=== PATIENT | female | born 1950 | race Caucasian/White ===

== ENCOUNTER 2016-10-15 08:06 | Day surgery (SDC) | payer OTHER ==
[~2016-10-15] VITALS: Ht 157.5 cm; Wt 68.0 kg
[~2016-10-15 08:06] MED LIST: DIPH1TAB36 PO; GUAN1TAB PO; LEVO88TA2 PO; TRAZ50TA4 PO; VENL150T14 PO; VIST25CA PO
[2016-10-15 08:20] VITALS: BP 141/71; PULSE 95; RESP 20; TEMP 98.1; O2SAT 97
[2016-10-15] MEDS ORDERED: VENL100T PO (09:12)
[2016-10-15] MEDS ORDERED: LEVO88TA2 PO (09:12)
[2016-10-15] MEDS ORDERED: LAMO150 PO (09:12)
[2016-10-15] MEDS ORDERED: TRAZ50TA12 PO (09:12)
[2016-10-15] MEDS ORDERED: LORA-373 PO (09:12)
[2016-10-15] MEDS ORDERED: CHLORHEXIDINE GLUCONATE 2 % 1 PACK (2 CLOTHS) TOPICAL SCH (09:30)
[2016-10-15] MEDS ORDERED: POVIDONE IODINE 5% (ANTISEPSIS KIT) 4 APPLICATIONS EACH NARE SCH (09:30)
[2016-10-15] MEDS ORDERED: SODIUM CHLORIDE 0.9% 1000 ML IV SCH (09:30)
[2016-10-15] MEDS ORDERED: ceFAZolin 2 GM PREMIX 50 ML - implanted port/tunneled catheter insertion IV SCH (09:30)
[2016-10-15] MEDS ORDERED: VANCOMYCIN 1000 MG/NS 250 ML - implanted port/tunneled catheter IV SCH ×2 (09:30)
[2016-10-15] MEDS ORDERED: METOCLOPRAMIDE HCL 10 MG/2 ML VIAL ONE (09:39)
[2016-10-15] MEDS ORDERED: MIDAZOLAM HCL 5 MG/5 ML VIAL ONE (09:57)
[2016-10-15] MEDS ORDERED: fentaNYL CITRATE 250 MCG/5 ML AMP ONE (09:58)
[2016-10-15] MEDS ORDERED: LIDOCAINE 1%/EPINEPHrine 1:100,000 SOLN 20 ML VIAL ONE (10:22)
--- NOTE | 2016-10-15 11:03 | PD.RAD ---
Post Procedure Progress Note Pre Procedure Diagnosis: (1) Ovarian cancer Post Procedure Diagnosis: (1) Ovarian cancer Procedure Date: Oct 15, 2016 Supervising Radiologist: Gama Hampton Proceduralist/Assist: Page Grajeda, RT(R), Denise Akers RT(R) Anesthesia: Local, Analgesia, Conscious Sedation Plan of Activity See PACS Report for procedural detail/treatment Central Venous Access Device Procedure 1 Right Internal Jugular Infusaport Placement single lumen Setswana: 8 Gama Hampton MD Oct 15, 2016 11:03
[2016-10-15 11:10] VITALS: BP 104/43; PULSE 93; RESP 16; TEMP 97.8; O2SAT 93
[2016-10-15] MEDS ORDERED: SODIUM CHLORIDE 0.9% FLUSH 5 ML FLUSH IVF PRN (11:15)
[2016-10-15 11:25] VITALS: BP 103/59; PULSE 91; RESP 16; O2SAT 92
[2016-10-15 12:00] VITALS: BP 95/61; PULSE 92; RESP 18; O2SAT 94
[2016-10-15 12:30] VITALS: BP 104/63; PULSE 92; RESP 18; O2SAT 94
[2016-10-15 13:00] VITALS: BP_SYST 108; BP_SYST 113; BP_DIAS 56; BP_DIAS 69; PULSE 88; PULSE 89; RESP 18; O2SAT 97
--- NOTE | 2016-10-15 15:54 | RADRPT ---
EXAM DATE/TIME: 10/15/2016 10:05 [facility] COMPARISON: No previous studies available for comparison. INDICATIONS : Patient with ovarian cancer in need of port placement. MEDICAL HISTORY : Ovarian cancer Anxiety Hemorrhoids Ascites SURGICAL HISTORY : Cholecystectomy Hysterectomy Colonoscopy 2016 Upper endoscopy ENCOUNTER: Initial ACUITY: 1 month PAIN SCORE: 5/10 LOCATION: upper abdomen due to ascites FLUORO TIME: 0.6 minutes SEDATION TIME: 30 minutes ACCESS: Right internal jugular vein SEDATION: 1.) 4 mg midazolam (Versed) IV 2.) 150 mcg fentanyl (Sublimaze) IV Prophylactic antibiotics were administered with appropriate pre-procedure timing. Vancomycin within 2 hours of procedure, Ancef (or alternative) within 1 hour of procedure. DEVICE: 1. 8 [place]arag[place] single lumen [id number] PROCEDURE : 1. Continuous pulse oximetry and EKG monitoring. 2. Intravenous conscious sedation. 3. Ultrasound guidance for venous access. 4. Fluoroscopic guided implantable central venous port placement. The patient was placed supine. The neck was prepped in sterile fashion. Full sterile technique was u sed, including cap, mask, sterile gloves and gown, and a large sterile sheet. Hand hygiene and 2% ch lorhexidine Betadine was utilized per protocol for cutaneous antisepsis with appropriate dry time for site. The skin and subcutaneous tissues were infiltrated with local anesthetic solution. Under direct ultrasound guidance, central venous access was accomplished in the targeted vessel. The ultrasound images depicting access guidance were stored and saved to PACS for permanent record. A s ubcutaneous pocket was created using blunt dissection. The port was introduced to the pocket. The c atheter tubing was fed through a subcutaneous tunnel to the venotomy site. The catheter tubing was c ut to a suitable length and then was introduced through a valved Peel-Away sheath and positioned with catheter tubing tip at the cavo-atrial junction level. The pocket incision was closed with subcutic ular Vicryl suture. Steri-Strips were applied. The port was flushed and locked with heparin solutio n per protocol. Sterile dressing was applied to the site. The patient tolerated the procedure well. Conscious sedation was performed with the prescribed dosages and duration as above. The patient coy ated the procedure well and there were no complications. EKG and oximetry remained stable throughout the procedure. The patient was sent to post anesthesia recovery in stable condition. CONCLUSION: Uncomplicated ultrasound and fluoroscopic guided implanted central venous port catheter placement as described in detail above. An 8 [place] Power port was placed. Gama Hampton MD on October 15, 2016 at 15:53 Board Certified Radiologist. This report was verified electronically.
== END 2016-10-15 13:30 | disposition home or self-care (01) ==
LOC: HROP 08:06 → HRIP 08:09 → HROP 13:30
PROVIDERS: ATTEND Obstetrics & Gynecology Gynecologic Oncology
DX: Z45.2 Encounter for adjustment and management of vascular access device (principal); C56.2 Malignant neoplasm of left ovary; C56.1 Malignant neoplasm of right ovary
CPT/HCPCS: 36561; 76937; 77001; 99152; 99153; C1788; J1642; J2250; J2765; J3010

== ENCOUNTER 2016-10-16 07:08 | Emergency (ER) | payer OTHER ==
[2016-10-16] VITALS (7 sets, daily range): BP systolic 15–153; BP diastolic 60–86; PULSE 80–98; RESP 18–25; TEMP 98.2–98.3; O2SAT 94–98
[~2016-10-16] VITALS: Ht 157.5 cm; Wt 71.0 kg
[~2016-10-16 07:08] MED LIST changes: +LAMO150 PO; +LORA-373 PO; +TRAZ50TA12 PO; +VENL100T PO
--- NOTE | 2016-10-16 07:27 | PD ---
HPI Chief Complaint: Abdominal Pain Time Seen by Provider: 07:27 Travel History International Travel<30 days: No Contact w/Intl Traveler<30days: No Traveled to known affect area: No History of Present Illness HPI 66-year-old female came to the emergency room with history of abdominal pain and distention. She was diagnosed with ovarian cancer 2 weeks ago while she was at [facility] for similar condition. She had fluid drained from her abdomen at that time. After she was discharged last week she followed up with Dr. Almanza and was told that she would probably end up requiring and a paracentesis on a weekly basis. She is also scheduled for chemotherapy. She had a port put in not too long ago for that purpose. Dr. Almanza was trying to arrange an outpatient paracentesis with radiology but patient didn't hear back and now she is really uncomfortable with the abdominal distention. She is here for the paracentesis. No history of fever or chills. No history of vomiting or diarrhea. [facility] Past Medical History Narrative Medical List of her past medical, social and family history as reviewed from the nursing note. Cancer: Yes Cardiovascular Problems: No Diabetes: No Endocrine: Yes Genitourinary: No Hepatitis: No Hiatal Hernia: Yes Immune Disorder: No Musculoskeletal: No Neurologic: No Psychiatric: Yes (DEPRESSION ANXIETY) Reproductive: Yes (OVARIAN CA) Respiratory: No Immunizations Current: Yes Thyroid Disease: Yes Past Surgical History Abdominal Surgery: Yes (CHOLECYSTECTOMY) AICD: No Cardiac Surgery: No Ear Surgery: No Eye Surgery: No Gynecologic Surgery: Yes (C SECTION AND HYSTERECTOMY) Joint Replacement: No Oral Surgery: Yes (TEETH EXTRACTION) Pacemaker: No Thoracic Surgery: No Social History Tobacco Use: No Substance Use: No Allergies-Medications (Allergen,Severity, Reaction): Coded Allergies: Dilaudid (Verified Allergy, Intermediate, hives all over, 10/16/16) Codeine (Verified Adverse Reaction, Severe, Hallucinations, 10/16/16) Morphine (Verified Adverse Reaction, Severe, Anaphylaxis, 10/16/16) Comments List of allergies reviewed from the nursing note. Reported Meds & Prescriptions Reported Meds & Active Scripts Active Reported Effexor (Venlafaxine HCl) 100 Mg Tab 100 Mg PO DAILY Levothyroxine (Levothyroxine Sodium) 88 Mcg Tab 88 Mcg PO DAILY Lorazepam 0.5 Mg Tab 0.5 Mg PO DAILY PRN Trazodone (Trazodone HCl) 50 Mg Tab 50 Mg PO HS Lamictal (Lamotrigine) 150 Mg Tab 150 Mg PO BID Narrative Medication List of her home medications reviewed from the nursing note. Review of Systems Except as stated in HPI: all other systems reviewed are Neg Physical Exam Narrative GENERAL: Awake, alert, anxious, moderate distress SKIN: Warm and dry. HEAD: Atraumatic. Normocephalic. EYES: Pupils equal and round. No scleral icterus. No injection or drainage. ENT: No nasal bleeding or discharge. Mucous membranes pink and moist. NECK: Trachea midline. No JVD. CARDIOVASCULAR: Regular rate and rhythm. No murmur appreciated. RESPIRATORY: No accessory muscle use. Clear to auscultation. Breath sounds equal bilaterally. GASTROINTESTINAL: Abdomen distended, tense with fluid thrill. Hepatic and splenic margins not palpable. MUSCULOSKELETAL: No obvious deformities. No clubbing. No cyanosis. No edema. NEUROLOGICAL: Awake and alert. No obvious cranial nerve deficits. Motor grossly within normal limits. Normal speech. PSYCHIATRIC: Appropriate mood and affect; insight and judgment normal. Data Data Last Documented VS Vital Signs Date Time Temp Pulse Resp B/P Pulse Ox O2 Delivery O2 Flow Rate FiO2 10/16/16 16:23 90 20 153/73 96 Room Air 10/16/16 08:27 98.3 Orders Complete Blood Count With Diff (10/16/16 07:29) Comprehensive Metabolic Panel (10/16/16 07:29) Prothrombin Time / Inr (Pt) (10/16/16 07:29) Iv Access Insert/Monitor (10/16/16 07:29) Ecg Monitoring (10/16/16 07:29) Oximetry (10/16/16 07:29) Ondansetron Inj (Zofran Inj) (10/16/16 07:30) Sodium Chloride 0.9% Flush (Ns Flush) (10/16/16 07:30) Us Guided Abd Paracentesis (10/16/16 ) Labs Laboratory Tests Test 10/16/16 08:00 White Blood Count 6.1 TH/MM3 Red Blood Count 4.44 MIL/MM3 Hemoglobin 11.4 GM/DL Hematocrit 34.1 % Mean Corpuscular Volume 76.8 FL Mean Corpuscular Hemoglobin 25.7 PG Mean Corpuscular Hemoglobin 33.5 % Concent Red Cell Distribution Width 14.5 % Platelet Count 651 TH/MM3 Mean Platelet Volume 6.5 FL Neutrophils (%) (Auto) 74.7 % Lymphocytes (%) (Auto) 16.1 % Monocytes (%) (Auto) 7.6 % Eosinophils (%) (Auto) 1.3 % Basophils (%) (Auto) 0.3 % Neutrophils # (Auto) 4.6 TH/MM3 Lymphocytes # (Auto) 1.0 TH/MM3 Monocytes # (Auto) 0.5 TH/MM3 Eosinophils # (Auto) 0.1 TH/MM3 Basophils # (Auto) 0.0 TH/MM3 CBC Comment DIFF FINAL Differential Comment Prothrombin Time 10.8 SEC Prothromb Time International 1.0 RATIO Ratio Sodium Level 138 MEQ/L Potassium Level 4.0 MEQ/L Chloride Level 105 MEQ/L Carbon Dioxide Level 26.3 MEQ/L Anion Gap 7 MEQ/L Blood Urea Nitrogen 12 MG/DL Creatinine 0.73 MG/DL Estimat Glomerular Filtration 80 ML/MIN Rate Random Glucose 84 MG/DL Calcium Level 8.3 MG/DL Total Bilirubin 0.2 MG/DL Aspartate Amino Transf 15 U/L (AST/SGOT) Alanine Aminotransferase 11 U/L (ALT/SGPT) Alkaline Phosphatase 98 U/L Total Protein 6.0 GM/DL Albumin 2.0 GM/DL MDM Medical Decision Making Medical Screen Exam Complete: Yes Emergency Medical Condition: Yes Medical Record Reviewed: Yes Differential Diagnosis Malignant ascites Narrative Course 11:30 AM blood test results came back and within normal limit. I discussed the case with interventional radiologist Dr. Josue Farrar will would to the ultrasound- guided paracentesis. Currently awaiting for the procedure. Patient will be discharged after that. I have recommended her to meet with her oncologist Tuesday and try to get this week the ultrasound scheduled better so that it can be done outpatient. Patient understands. She did not want anything for pain. 1:51 PM currently awaiting for the ultrasound-guided paracentesis. 3 PM patient was taken a short while ago for the procedure. 4 PM please refer to the radiologist's note. About 3.5 L of fluid was taken out of the abdomen. If patient has normal vital signs every 15 minutes 2 she' ll be discharged home. Procedures EKG Prior to Arrival: No Diagnosis Primary Impression: Malignant ascites Additional Impression: Ovarian cancer Qualified Code: C56.9 - Ovarian cancer, unspecified laterality Referrals: Primary Care Physician 2 days Additional Instructions: Please follow-up with your oncologist Dr. Almanza regarding outpatient set up for paracentesis and future. Please return to the ER if the condition worsens or any other new concerns. Med/Other Pt SpecificInfo: No Change to Meds Disposition: 01 DISCHARGE HOME Condition: Stable Bekah Finch MD Oct 16, 2016 07:27
[2016-10-16] MEDS ORDERED: ONDANSETRON HCL 4 MG/2 ML VIAL IVP ONE (07:30)
[2016-10-16] MEDS ORDERED: SODIUM CHLORIDE 0.9% FLUSH 5 ML FLUSH IVF PRN (07:30)
[2016-10-16 08:17] LABS: AUTOMATED NEUTROPHIL # 4.6 TH/MM3 (1.8-7.7); BASOPHIL % 0.3 % (0.0-2.0); EOSINOPHIL # 0.1 TH/MM3 (0-0.4); EOSINOPHIL % 1.3 % (0.0-4.0); HEMATOCRIT 34.1 % (35.0-46.0); HEMO FLAGS DIFF FINAL; LYMPH % 16.1 % (9.0-44.0); MEAN CELL VOLUME 76.8 FL (80.0-100.0); MEAN CORPUSCULAR HEMOGLOBIN 25.7 PG (27.0-34.0); MEAN CORPUSCULAR HGB CONC 33.5 % (32.0-36.0); MONO % 7.6 % (0.0-8.0); NEUT % 74.7 % (16.0-70.0); PLATELET COUNT 651 TH/MM3 (150-450); RED BLOOD COUNT 4.44 MIL/MM3 (4.00-5.30); RED CELL DISTRIBUTION WIDTH 14.5 % (11.6-17.2); WHITE BLOOD COUNT 6.1 TH/MM3 (4.0-11.0)
[2016-10-16 08:24] LABS: PROTHROMBIN TIME - PATIENT 10.8 SEC (9.8-11.6)
[2016-10-16 08:50] LABS: ALT (GPT) 11 U/L (10-53); ANION GAP 7 MEQ/L (5-15); AST (GOT) 15 U/L (15-37); BICARBONATE 26.3 MEQ/L (21.0-32.0); BLOOD UREA NITROGEN 12 MG/DL (7-18); CHLORIDE 105 MEQ/L (98-107); GLOMERULAR FILTRATION RATE 80 ML/MIN (>89); SODIUM (NA) 138 MEQ/L (136-145)
[2016-10-16 08:52] LABS: ALKALINE PHOSPHATASE 98 U/L (45-117); TOTAL BILIRUBIN ADULT 0.2 MG/DL (0.2-1.0)
--- NOTE | 2016-10-16 16:17 | RADRPT ---
EXAM DATE/TIME: 10/16/2016 14:51 [facility] COMPARISON: No previous studies available for comparison. INDICATIONS : Ascites. MEDICAL HISTORY : Hypothyroidism. . Ovarian cancer. Depression. Anxiety. Hiatal hernia. SURGICAL HISTORY : Cholecystectomy Hysterectomy. section. Bilateral carpal tunnel. Port placement. ENCOUNTER: Initial ACUITY: 1 week PAIN SCORE: 7/10 LOCATION: Right lower quadrant FLUID: Total volume of 3400 cc of clear, yellow fluid was removed. Fluid was discarded. Paracentesis was therapeutic only. Post procedure scanning reveals no hematoma or other complication. TECHNIQUE: 1. Ultrasound guidance for abdominal paracentesis. 2. Paracentesis. The risks, benefits, and alternatives to ultrasound guided paracentesis were explained to the patient in detail including the risk of bleeding and infection. Written and verbal informed consent was obt ained. With the patient on the ultrasound table, ultrasound imaging was used to select the most appropriate approach for paracentesis. Overlying skin was prepped and draped in the usual sterile fashion and wi th a local anesthetic, a dermatotomy was made with an 11 blade scalpel. A 6 [place] [id number] ca theter was introduced into the peritoneal cavity and fluid was collected. The patient tolerated the procedure well and left the ultrasound suite in stable condition. CONCLUSION: Uncomplicated ultrasound guided paracentesis. Shahid Joseph MD on October 16, 2016 at 16:15 Board Certified Radiologist. This report was verified electronically.
== END 2016-10-16 16:43 | disposition home or self-care (01) ==
LOC: NEPE 07:08
DX: C56.9 Malignant neoplasm of unspecified ovary (principal); R18.0 Malignant ascites; E07.9 Disorder of thyroid, unspecified; Z86.59 Personal history of other mental and behavioral disorders
CPT/HCPCS: 49083; 80053; 85025; 85610; 96374; 99284; C1729; J2405

== ENCOUNTER 2016-11-10 12:53 | Day surgery (SDC) | payer OTHER ==
[~2016-11-10 12:53] MED LIST changes: -DIPH1TAB36 PO; -GUAN1TAB PO; -TRAZ50TA4 PO; -VENL150T14 PO; -VIST25CA PO
[2016-11-10 13:14] VITALS: BP 155/92; PULSE 89; RESP 20; TEMP 98.2; O2SAT 96
[2016-11-10] MEDS ORDERED: MIDAZOLAM HCL 5 MG/5 ML VIAL ONE (14:12)
[2016-11-10] MEDS ORDERED: fentaNYL CITRATE 250 MCG/5 ML AMP ONE (14:12)
[2016-11-10] MEDS ORDERED: LIDOCAINE 1%/EPINEPHrine 1:100,000 SOLN 20 ML VIAL ONE (14:15)
[2016-11-10] MEDS: ceFAZolin 2 GM PREMIX 50 ML ONE ×2 (14:35→14:38)
--- NOTE | 2016-11-10 15:11 | PD.RAD ---
Post Procedure Progress Note Pre Procedure Diagnosis: (1) Encounter for care related to Port-a-Cath Post Procedure Diagnosis: (1) Encounter for care related to Port-a-Cath Procedure Date: Nov 10, 2016 Supervising Radiologist: Al Gee JR Proceduralist/Assist: Page Grajeda, RT(R), Lashay Oliveros RT(R)() Anesthesia: Conscious Sedation Plan of Activity Patient to Unit: ROPU Patient Condition: Good See PACS Report for procedural detail/treatment Central Venous Access Device Procedure 1 Right Internal Jugular Infusaport Reposition single lumen [place]: 8 Findings: The original port had flipped. The port was repositioned and anchored in place. The catheter was felt a little long and therefore 1.5 cm of length was also removed from the catheter. Plan F/U with IR in 10-14 days Jr. Gerard,Al Dyer MD Nov 10, 2016 15:11
[2016-11-10 15:15] VITALS: BP 133/70; PULSE 82; RESP 16; TEMP 96.3; O2SAT 99
[2016-11-10 15:30] VITALS: BP 139/69; PULSE 76; RESP 16; O2SAT 99
[2016-11-10 16:00] VITALS: BP 134/72; PULSE 80; RESP 16; O2SAT 99
--- NOTE | 2016-11-10 16:13 | RADRPT ---
EXAM DATE/TIME: 11/10/2016 14:16 [facility] COMPARISON: [id number] PLCMT, POWERPORT, W US, RIGHT, October 15, 2016, 10:05. INDICATIONS : Patient with non-fuctioning port in need of port revision. MEDICAL HISTORY : Ovarian cancer Anxiety Hemorrhoids Ascites SURGICAL HISTORY : Cholecystectomy Hysterectomy Colonoscopy 2016 Upper endoscopy ENCOUNTER: Subsequent ACUITY: 2 days PAIN SCORE: 0/10 FLUORO TIME: 0.6 minutes IMAGE SERIES: 1 SEDATION TIME: 45 minutes SEDATION: 1.) 4.5 mg midazolam (Versed) IV 2.) 225 mcg fentanyl (Sublimaze) IV Prophylactic antibiotics were administered with appropriate pre-procedure timing. Vancomycin within 2 hours of procedure, Ancef (or alternative) within 1 hour of procedure. PROCEDURE : 1. Continuous pulse oximetry and EKG monitoring. 2. Intravenous conscious sedation. 3. Fluoroscopic guided port revision. 4. Ultrasound guidance for venous access. The patient was placed supine. The neck was prepped in sterile fashion. Full sterile technique was u sed, including cap, mask, sterile gloves and gown, and a large sterile sheet. Hand hygiene and 2% ch lorhexidine Betadine was utilized per protocol for cutaneous antisepsis with appropriate dry time for site. The skin and subcutaneous tissues were infiltrated with local anesthetic solution. An incision was made over the existing scar from the port placement. Blunt dissection opened the pock et. No signs of infection. The port had rotated such that the posterior wall was facing anterior. The port was repositioned. Fluoroscopic evaluation shows the tip fairly low within the right atrium and therefore 1.5 cm of catheter was removed. The port was anchored utilizing 2-0 Prolene suture to try a nd prevent future rotation of the port. The port flushes and aspirates well. 100 unit per cc heparin solution was utilized to flush the port. Conscious sedation was performed with the prescribed dosages and duration as above in the presence of an independent trained radiology nurse to assist in the monitoring of the patient. EKG and oximetry remained stable throughout the procedure. The patient tolerated the procedure well and there were n o complications. The patient was sent to post anesthesia recovery in stable condition. CONCLUSION: Uncomplicated fluoroscopic guided port revision as described in detail above. The port had rotated. I t was repositioned and anchored utilizing sutures. Al Gee Jr., MD on November 10, 2016 at 16:08 Board Certified Radiologist. This report was verified electronically.
[2016-11-10 16:30] VITALS: BP 129/69; PULSE 78; RESP 16; O2SAT 99
== END 2016-11-10 17:10 | disposition home or self-care (01) ==
LOC: HROP 12:53 → HRIP 12:57 → HROP 17:10
PROVIDERS: ATTEND Obstetrics & Gynecology Gynecologic Oncology
DX: Z45.2 Encounter for adjustment and management of vascular access device (principal); C56.2 Malignant neoplasm of left ovary; C56.1 Malignant neoplasm of right ovary
CPT/HCPCS: 36576; 77001; 99152; 99153; J0690; J1642; J2250; J3010

== ENCOUNTER 2017-02-20 18:28 | Emergency (ER) | payer OTHER ==
[~2017-02-20] VITALS: Ht 157.5 cm; Wt 65.0 kg
[2017-02-20 18:30] VITALS: BP 145/65; PULSE 115; RESP 17; TEMP 97.8; O2SAT 99
[2017-02-20] MEDS ORDERED: PERC5TAB12 PO (19:06)
[2017-02-20 19:15] VITALS: BP 131/65; PULSE 94; RESP 18; O2SAT 100
[2017-02-20] MEDS ORDERED: ONDANSETRON HCL 4 MG/2 ML VIAL IVP ONE (19:15)
[2017-02-20] MEDS ORDERED: SODIUM CHLOR 0.9% 1000 ML INJ 1,000 ML IV ONE ×2 (19:15)
[2017-02-20] MEDS ORDERED: SODIUM CHLORIDE 0.9% FLUSH 10 ML FLUSH IVF PRN (19:15)
[2017-02-20] MEDS ORDERED: fentaNYL CITRATE 250 MCG/5 ML AMP IV PUSH ONE (19:15)
--- NOTE | 2017-02-20 19:21 | PD ---
HPI Chief Complaint: General Weakness Time Seen by Provider: 19:14 Travel History International Travel<30 days: No Contact w/Intl Traveler<30days: No Traveled to known affect area: No History of Present Illness HPI 66-year-old female presents to the emergency department for evaluation of coccyx , bilateral hip pain, and bilateral thigh pain that started approximately 1 week ago. She is undergoing chemotherapy by Dr. Almanza for stage IV ovarian cancer with mets. Patient states she was placed on tramadol by Dr. Almanza and was told it was post chemotherapy pain. She also received a prescription for Percocet by her PCP for the pain. She states she is currently rotating the tramadol and Percocet every 4 hours for the pain. Patient denies any chest pain /shortness of breath. She has chronic pelvic pain from ovarian CA, but states this is unchanged. Patient states her last chemotherapy was 4 weeks ago. She is waiting to undergo surgery to remove tumor. Patient denies any injury or trauma. She does states her urine is dark and cloudy. She reports history of hypothyroidism, depression as well. PFSH Past Medical History Anxiety: Yes Depression: Yes Cancer: Yes (OVARIAN) Cardiovascular Problems: No Chemotherapy: Yes (4 WEEKS AGO) Diabetes: No Diminished Hearing: No Endocrine: Yes Genitourinary: No Hepatitis: No Hiatal Hernia: Yes Immune Disorder: No Musculoskeletal: No Neurologic: No Psychiatric: Yes (DEPRESSION ANXIETY) Reproductive: Yes (OVARIAN CA) Respiratory: No Immunizations Current: Yes Thyroid Disease: Yes (HYPO) Tetanus Vaccination: Unknown Influenza Vaccination: Yes : 3 Para: 3 Miscarriage: 0 : 0 Past Surgical History Abdominal Surgery: Yes AICD: No Cardiac Surgery: No Section: Yes Cholecystectomy: Yes Ear Surgery: No Eye Surgery: No Gynecologic Surgery: Yes (C SECTION AND HYSTERECTOMY) Hysterectomy: Yes (PARTIAL) Joint Replacement: No Oral Surgery: Yes (TEETH EXTRACTION) Pacemaker: No Thoracic Surgery: No Other Surgery: Yes (PORT PLACED FOR CHEMO TO R SUBCLAVIAN) Social History Alcohol Use: No Tobacco Use: No Substance Use: No Allergies-Medications (Allergen,Severity, Reaction): Coded Allergies: Dilaudid (Verified Allergy, Intermediate, hives all over, 02/20/17) Codeine (Verified Adverse Reaction, Severe, Hallucinations, 02/20/17) Morphine (Verified Adverse Reaction, Severe, Anaphylaxis, 02/20/17) Reported Meds & Prescriptions Reported Meds & Active Scripts Active Reported Percocet (Oxycodone-Acetaminophen) 5-325 mg Tab 1 Tab PO Q8HR PRN Effexor (Venlafaxine HCl) 100 Mg Tab 100 Mg PO DAILY Levothyroxine (Levothyroxine Sodium) 88 Mcg Tab 88 Mcg PO DAILY Lorazepam 0.5 Mg Tab 0.5 Mg PO DAILY PRN Trazodone (Trazodone HCl) 50 Mg Tab 50 Mg PO HS Lamictal (Lamotrigine) 150 Mg Tab 150 Mg PO BID Review of Systems Except as stated in HPI: all other systems reviewed are Neg Physical Exam Narrative GENERAL: Well-nourished, well-developed female patient, ambulatory and in no acute distress. Afebrile. SKIN: Focused skin assessment warm/dry. HEAD: Normocephalic. Atraumatic. EYES: No scleral icterus. No injection or drainage. NECK: Supple, trachea midline. No JVD or lymphadenopathy. CARDIOVASCULAR: Regular rate and rhythm without murmurs, gallops, or rubs. RESPIRATORY: Breath sounds equal bilaterally. No accessory muscle use. Lung sounds are clear to auscultation throughout. GASTROINTESTINAL: Abdomen soft, non-tender, nondistended. MUSCULOSKELETAL: No cyanosis, or edema. Patient has tenderness over bilateral hips/thighs/as well as sacrum. BACK: Nontender without obvious deformity. No CVA tenderness. Data Data Last Documented VS Vital Signs Date Time Temp Pulse Resp B/P Pulse Ox O2 Delivery O2 Flow Rate FiO2 02/20/17 20:30 100 Room Air 02/20/17 19:15 94 18 131/65 02/20/17 18:30 97.8 Orders Fentanyl Inj (Fentanyl Inj) (02/20/17 19:15) Complete Blood Count With Diff (02/20/17 19:13) Comprehensive Metabolic Panel (02/20/17 19:13) Magnesium (Mg) (02/20/17 19:13) Urinalysis - C+S If Indicated (02/20/17 19:13) Ecg Monitoring (02/20/17 19:13) Iv Access Insert/Monitor (02/20/17 19:13) Oximetry (02/20/17 19:13) Ondansetron Inj (Zofran Inj) (02/20/17 19:15) Sodium Chloride 0.9% Flush (Ns Flush) (02/20/17 19:15) Creatine Kinase (Cpk) (02/20/17 19:13) Sodium Chlor 0.9% 1000 Ml Inj (Ns 1000 M (02/20/17 19:15) Sodium Chlor 0.9% 1000 Ml Inj (Ns 1000 M (02/20/17 19:15) Fentanyl Inj (Fentanyl Inj) (02/20/17 20:19) Labs Laboratory Tests Test 02/20/17 02/20/17 19:50 21:35 White Blood Count 4.8 TH/MM3 Red Blood Count 3.50 MIL/MM3 Hemoglobin 11.0 GM/DL Hematocrit 31.5 % Mean Corpuscular Volume 89.9 FL Mean Corpuscular Hemoglobin 31.3 PG Mean Corpuscular Hemoglobin 34.9 % Concent Red Cell Distribution Width 13.1 % Platelet Count 259 TH/MM3 Mean Platelet Volume 6.2 FL Neutrophils (%) (Auto) 51.4 % Lymphocytes (%) (Auto) 28.3 % Monocytes (%) (Auto) 12.2 % Eosinophils (%) (Auto) 7.8 % Basophils (%) (Auto) 0.3 % Neutrophils # (Auto) 2.4 TH/MM3 Lymphocytes # (Auto) 1.3 TH/MM3 Monocytes # (Auto) 0.6 TH/MM3 Eosinophils # (Auto) 0.4 TH/MM3 Basophils # (Auto) 0.0 TH/MM3 CBC Comment DIFF FINAL Differential Comment Sodium Level 135 MEQ/L Potassium Level 3.4 MEQ/L Chloride Level 102 MEQ/L Carbon Dioxide Level 24.2 MEQ/L Anion Gap 9 MEQ/L Blood Urea Nitrogen 25 MG/DL Creatinine 0.80 MG/DL Estimat Glomerular Filtration 72 ML/MIN Rate Random Glucose 95 MG/DL Calcium Level 9.2 MG/DL Magnesium Level 1.8 MG/DL Total Bilirubin 0.3 MG/DL Aspartate Amino Transf 27 U/L (AST/SGOT) Alanine Aminotransferase 19 U/L (ALT/SGPT) Alkaline Phosphatase 115 U/L Total Creatine Kinase 80 U/L Total Protein 8.8 GM/DL Albumin 3.5 GM/DL Urine Color YELLOW Urine Turbidity CLEAR Urine pH 5.5 Urine Specific [place] 1.015 Urine Protein TRACE mg/dL Urine Glucose (UA) NEG mg/dL Urine Ketones NEG mg/dL Urine Occult Blood SMALL Urine Nitrite NEG Urine Bilirubin NEG Urine Urobilinogen LESS THAN 2.0 MG/DL Urine Leukocyte Esterase NEG Urine RBC 1 /hpf Urine WBC 2 /hpf Urine Squamous Epithelial <1 /hpf Cells Urine Amorphous Sediment RARE Urine Bacteria RARE /hpf Urine Hyaline Casts 8 /lpf Urine Mucus FEW /lpf Microscopic Urinalysis Comment CULT NOT INDICATED MDM Medical Decision Making Medical Screen Exam Complete: Yes Emergency Medical Condition: Yes Medical Record Reviewed: Yes Differential Diagnosis electrolyte abnormality vs. dehydration vs. UTI vs. post chemotherapy pain vs. bone mets Narrative Course 66 year old female presents to the emergency department for evaluation of sacral /bilateral hip/bilateral thigh pain. She was told this was post chemotherapy pain. She reports decreased appetite since pain started. CBC, CMP, magnesium, CK, UA are ordered and pending. Patient is given NS 2 L IV bolus x2, Fentanyl 50 mcg IV, Zofran 4 mg IV. CBC shows anemia hemoglobin 11.0, hematocrit 31.5. CMP shows elevated BUN of 25. Magnesium is 1.8. CK is 80. UA is negative for acute infection. Patient states she is feeling better after IV fluids. She states she would like to go home. She states she'll follow up with Dr. Almanza. I think this is reasonable. Patient is instructed to follow up. She is return for any acute worsening of symptoms. I discussed the case with my attending physician, Dr. James, who agrees with plan and disposition. The patient was discharged in stable condition with instructions, including return instructions and follow up instructions. Diagnosis Primary Impression: Low back pain Qualified Code: M54.5 - Acute bilateral low back pain without sciatica Additional Impression: Ovarian cancer Qualified Code: C56.9 - Ovarian cancer, unspecified laterality Referrals: Sharmin Almanza MD 1 day Patient Instructions: Acute Low Back Pain (ED), General Instructions Additional Instructions: Continue tramadol/Percocet as directed as needed for pain. Follow up with Dr. Almanza in 1-2 days. Return to the emergency department for any acute, worsening of symptoms. Med/Other Pt SpecificInfo: No Change to Meds Disposition: 01 DISCHARGE HOME Condition: Stable Chantel Jean DEO Feb 20, 2017 19:20
[2017-02-20 20:18] LABS: AUTOMATED NEUTROPHIL # 2.4 TH/MM3 (1.8-7.7); BASOPHIL % 0.3 % (0.0-2.0); EOSINOPHIL # 0.4 TH/MM3 (0-0.4); EOSINOPHIL % 7.8 % (0.0-4.0); HEMATOCRIT 31.5 % (35.0-46.0); HEMO FLAGS DIFF FINAL; LYMPH % 28.3 % (9.0-44.0); LYMPHOCYTE # 1.3 TH/MM3 (1.0-4.8); MEAN CELL VOLUME 89.9 FL (80.0-100.0); MEAN CORPUSCULAR HEMOGLOBIN 31.3 PG (27.0-34.0); MEAN CORPUSCULAR HGB CONC 34.9 % (32.0-36.0); MONO % 12.2 % (0.0-8.0); NEUT % 51.4 % (16.0-70.0); PLATELET COUNT 259 TH/MM3 (150-450); RED CELL DISTRIBUTION WIDTH 13.1 % (11.6-17.2); WHITE BLOOD COUNT 4.8 TH/MM3 (4.0-11.0)
[2017-02-20] MEDS ORDERED: fentaNYL CITRATE 250 MCG/5 ML AMP ONE (20:19)
[2017-02-20 20:30] VITALS: O2SAT 100
[2017-02-20 20:40] LABS: ANION GAP 9 MEQ/L (5-15); AST (GOT) 27 U/L (15-37); BICARBONATE 24.2 MEQ/L (21.0-32.0); BLOOD UREA NITROGEN 25 MG/DL (7-18); CHLORIDE 102 MEQ/L (98-107); GLOMERULAR FILTRATION RATE 72 ML/MIN (>89); MAGNESIUM 1.8 MG/DL (1.5-2.5); POTASSIUM 3.4 MEQ/L (3.5-5.1); SODIUM (NA) 135 MEQ/L (136-145)
[2017-02-20 20:44] LABS: ALKALINE PHOSPHATASE 115 U/L (45-117); ALT (GPT) 19 U/L (10-53); TOTAL BILIRUBIN ADULT 0.3 MG/DL (0.2-1.0)
[2017-02-20 20:52] LABS: CREATINE KINASE 80 U/L (26-192)
[2017-02-20 22:16] LABS: BACTERIA, URINE RARE /hpf; BLOOD, URINE SMALL (NEG); COMMENT (UR) CULT NOT INDICATED; CULTURE IF INDICATED CULT NOT INDICATED; GLUCOSE,URINE NEG (NEG); HYALINE CAST, URINE 8 /lpf (RARE); KETONE, URINE NEG (NEG); MUCUS URINE FEW /lpf (OCC); NITRITE,URINE NEG (NEG); PH, URINE 5.5 (5.0-8.5); SQUAMOUS EPITHELIAL CELL URINE <1 /hpf (0-5); URINE COLOR YELLOW (YELLW/STRAW)
== END 2017-02-20 22:56 | disposition home or self-care (01) ==
LOC: NEPE 18:28
DX: C56.9 Malignant neoplasm of unspecified ovary (principal); M54.5 Low back pain; E03.9 Hypothyroidism, unspecified; Z79.899 Other long term (current) drug therapy
CPT/HCPCS: 80053; 81001; 82550; 83735; 85025; 96374; 96375; 99284; J1642; J2405; J3010; J7030

== ENCOUNTER 2017-03-10 10:17 | Inpatient (IN) | payer OTHER, MEDICARE ==
[~2017-03-10] VITALS: Ht 157.5 cm; Wt 65.0 kg
[~2017-03-10 10:17] MED LIST changes: +PERC5TAB12 PO
[2017-03-10] MEDS ORDERED: TRAM50TA PO (15:28)
[2017-03-10] MEDS ORDERED: LACTCAP8 PO (15:31)
[2017-03-10] MEDS ORDERED: MELA10TA4 PO (15:31)
[2017-03-10] MEDS ORDERED: PRIL20TA2 PO (15:31)
[2017-03-10] MEDS ORDERED: MULTTAB67 PO (15:31)
[2017-03-14] MEDS ORDERED: HEPARIN SODIUM - SQ 10,000 UNITS/ML VIAL SQ SCH (05:42)
[2017-03-14] MEDS ORDERED: LACTATED RINGER'S 1000 ML IV PRN (05:45)
[2017-03-14] MEDS ORDERED: POVIDONE IODINE 5% (ANTISEPSIS KIT) 4 APPLICATIONS EACH NARE PRN (05:45)
[2017-03-14] MEDS ORDERED: SODIUM CHLORID 0.9% 500 ML IV PRN (05:45)
[2017-03-14] MEDS ORDERED: INSULIN HUMAN REGULAR 1,000 UNITS/10 ML VIAL SQ PRN (05:45)
[2017-03-14] MEDS ORDERED: METOPROLOL TARTRATE 25 MG TAB PO PRN (05:45)
[2017-03-14] MEDS ORDERED: CHLORHEXIDINE GLUCONATE 2 % 1 PACK (2 CLOTHS) TOPICAL PRN (05:45)
[2017-03-14] MEDS ORDERED: ceFAZolin 1,000 MG/NS 100 ML IV SCH ×2 (05:45)
[2017-03-14] MEDS ORDERED: SODIUM CHLORIDE 0.9% FLUSH 10 ML FLUSH IV FLUSH PRN (06:00)
[2017-03-14 06:04] VITALS: BP 130/73; PULSE 104; RESP 16; TEMP 98.2; O2SAT 97
[2017-03-14 06:20] LABS: PROTHROMBIN TIME - PATIENT 10.9 SEC (9.8-11.6)
[2017-03-14] MEDS ORDERED: LIDOCAINE 1%/EPINEPHrine 1:100,000 SOLN 20 ML VIAL ONE (06:55)
[2017-03-14] MEDS ORDERED: ARTIFICIAL TEARS OPTH OINT 3.5 APPLIC/3.5 GM TUBO ONE (07:08)
[2017-03-14] MEDS ORDERED: ACETAMINOPHEN 1000 MG/100 ML VIAL IV ONE (07:08)
[2017-03-14] MEDS ORDERED: MIDAZOLAM HCL 2 MG/2 ML VIAL ONE (07:09)
[2017-03-14] MEDS ORDERED: SUGAMMADEX SODIUM 200 MG/2 ML VIAL IV PUSH ONE ×2 (07:09)
[2017-03-14] MEDS ORDERED: APREPITANT 40 MG CAP ONE (07:12)
[2017-03-14] MEDS ORDERED: DEXAMETHASONE SOD PHOS 4 MG/ML VIAL ONE (07:14)
[2017-03-14] MEDS ORDERED: FAMOTIDINE 20 MG/2 ML VIAL ONE (07:14)
[2017-03-14] MEDS ORDERED: ceFAZolin INJ 1,000 MG VIAL IV ONE ×2 (10:20→12:00)
[2017-03-14] MEDS ORDERED: ePHEDrine/NS 25 MG/5 ML SYR IV ONE (12:00)
[2017-03-14] MEDS ORDERED: VECURONIUM BROMIDE 20 MG VIAL IV ONE (12:00)
[2017-03-14] MEDS ORDERED: NORMOSOL R INJ 2,000 ML IV ONE (12:00)
[2017-03-14] MEDS ORDERED: PROPOFOL 200 MG/20 ML AMP IV ONE (12:00)
[2017-03-14] MEDS ORDERED: ONDANSETRON HCL 4 MG/2 ML VIAL IV PUSH ONE (12:00)
[2017-03-14] MEDS ORDERED: PHENYLEPH/NS 1000 MCG/10 ML SYR IV ONE (12:00)
[2017-03-14] MEDS ORDERED: traMADol HCL 50 MG TAB PO PRN (12:30)
[2017-03-14] MEDS ORDERED: LORazepam 0.5 MG TAB PO PRN (12:30)
[2017-03-14] MEDS ORDERED: DEXAMETHASONE SOD PHOS PF 10 MG/ML VIAL IV ONE (12:39)
[2017-03-14] MEDS ORDERED: BUPIVACAINE LIPOSOME PF 1.3% 20 ML VIAL ONE (12:40)
[2017-03-14] MEDS ORDERED: DO NOT ADM ANY ANTICOAGULANT DRUGS PRN (12:40)
[2017-03-14] MEDS ORDERED: diphenhydrAMINE HCL 25 MG CAP PO PRN (12:45)
[2017-03-14] MEDS ORDERED: ONDANSETRON HCL 4 MG/2 ML VIAL IVP PRN (12:45)
[2017-03-14] MEDS ORDERED: fentaNYL CITRATE 250 MCG/5 ML AMP ONE (12:53)
[2017-03-14] MEDS: D5-1/2 NS + KCL 20 MEQ INJ 1,000 ML IV SCH ×2 (13:15→22:10)
[2017-03-14] MEDS ORDERED: *ONDANSETRON 4 MG VIAL PERIprocedural Use ONLY ONE (14:21)
[2017-03-14 14:32] VITALS: BP 139/66; PULSE 77; RESP 16; TEMP 96.4; O2SAT 100
--- NOTE | 2017-03-14 16:27 | PD.ONC.PN ---
Subjective Subjective Remarks post op noted pt resting in bed without complaints little pain denies any n/v Objective Data Date Time Temp Pulse Resp B/P Pulse Ox O2 Delivery O2 Flow Rate FiO2 03/14/17 14:32 96.4 77 16 139/66 100 03/14/17 14:15 97.5 75 12 143/72 100 Nasal Cannula 2 03/14/17 14:00 75 13 147/76 100 Nasal Cannula 2 03/14/17 13:45 73 12 139/70 100 Nasal Cannula 2 03/14/17 13:30 73 12 141/68 100 Nasal Cannula 2 03/14/17 13:15 75 15 134/64 100 Nasal Cannula 2 03/14/17 13:00 75 12 101/53 100 Nasal Cannula 2 03/14/17 12:43 98.1 76 12 93/54 100 Nasal Cannula 2 03/14/17 06:04 98.2 104 16 130/73 97 03/14/17 03/14/17 03/14/17 07:00 15:00 23:00 Intake Total 2670 ml Output Total 600 ml Balance 2070 ml Laboratory Results Laboratory Tests Test 03/14/17 06:00 Prothrombin Time 10.9 SEC Prothromb Time International 1.0 RATIO Ratio Blood Type O POSITIVE Antibody Screen NEGATIVE Blood Bank Comment Administered Medications Medications (Trade) Dose Ordered Sig/Rose Route PRN Reason Start Time Stop Time Status Last Admin Dose Admin Lactated Ringer's (Lr 1000 ml Inj) 1,000 ml @ 30 mls/hr Q24H PRN IV SEE LABEL COMMENTS 03/14/17 05:45 03/17/17 05:44 03/14/17 06:00 Tramadol HCl 50 mg 50 mg Q6H PRN PO PAIN 1-10 03/14/17 12:30 03/14/17 13:33 Potassium Chloride/Dextrose/ Sod Cl (D5-1/2 NS + KCl 20 Meq Inj) 1,000 ml @ 100 mls/hr Q10H IV 03/14/17 14:00 03/14/17 13:15 Objective Remarks GENERAL: Well-nourished, well-developed patient. SKIN: Warm and dry. HEAD: Normocephalic. EYES: No scleral icterus. No injection or drainage. CARDIOVASCULAR: Regular rate and rhythm without murmurs. RESPIRATORY: Breath sounds equal bilaterally. No accessory muscle use. GASTROINTESTINAL: SS are c/d/i EXTREMITIES: teds and scds MUSCULOSKELETAL: Adequate muscle tone. NEUROLOGICAL: No obvious focal deficit. Awake, alert, and oriented x3. PSYCHIATRIC: Appropriate mood and affect; insight and judgment normal. Assessment/Plan Problem List: (1) Ovarian cancer Status: Acute (2) Post-operative state Status: Acute Plan: RA guido hyst with BSO, omentectomy for ovarian cancer post op orders in chart Toradol and Percocet for pain Umana d/c'd in am clear liquid diet to ADAT Ok to get OOB to chair IS to bedside Anson Isaac [facility] Mar 14, 2017 16:27
[2017-03-14] MEDS: KETOROLAC TROMETHAMINE 30 MG/ML (IVP) VIAL IVP SCH ×2 (17:27→23:59)
[2017-03-14] MEDS ORDERED: oxyCODONE/ACETAMINOPHEN 5 MG/325 MG TAB PO ONE (20:00)
[2017-03-14] MEDS: SODIUM CHLORIDE 0.9% FLUSH 10 ML FLUSH IV FLUSH SCH (20:07)
[2017-03-14 20:37] VITALS: BP 144/80; PULSE 89; RESP 18; TEMP 97; O2SAT 99
[2017-03-14] MEDS ORDERED: traZODone HCL 50 MG TAB PO SCH (21:00)
[2017-03-14] MEDS ORDERED: MELATONIN 5 MG TAB PO SCH (21:00)
[2017-03-14] MEDS: lamoTRIgine 100 MG TAB PO SCH (22:07)
[2017-03-15 00:37] VITALS: BP 106/58; PULSE 82; RESP 18; TEMP 97.4; O2SAT 98
[2017-03-15] MEDS: SIMETHICONE 80 MG CHEWABLE TAB PO PRN ×2 (00:51→08:11)
[2017-03-15 04:37] VITALS: BP_SYST 95; BP_SYST 98; BP_DIAS 53; BP_DIAS 54; PULSE 60; PULSE 82; RESP 15; RESP 18; TEMP 96.8; TEMP 97.6; O2SAT 100; O2SAT 99
[2017-03-15] MEDS: SODIUM CHLORIDE 0.9% FLUSH 10 ML FLUSH IV FLUSH PRN ×2 (04:53)
[2017-03-15 05:37] LABS: AUTOMATED NEUTROPHIL # 2.7 TH/MM3 (1.8-7.7); BASOPHIL % 0.2 % (0.0-2.0); EOSINOPHIL # 0.1 TH/MM3 (0-0.4); EOSINOPHIL % 1.9 % (0.0-4.0); HEMATOCRIT 25.4 % (35.0-46.0); HEMO FLAGS DIFF FINAL; LYMPH % 29.6 % (9.0-44.0); LYMPHOCYTE # 1.3 TH/MM3 (1.0-4.8); MEAN CELL VOLUME 88.7 FL (80.0-100.0); MEAN CORPUSCULAR HEMOGLOBIN 31.1 PG (27.0-34.0); MEAN CORPUSCULAR HGB CONC 35.1 % (32.0-36.0); MONO % 8.9 % (0.0-8.0); NEUT % 59.4 % (16.0-70.0); PLATELET COUNT 164 TH/MM3 (150-450); RED BLOOD COUNT 2.86 MIL/MM3 (4.00-5.30); RED CELL DISTRIBUTION WIDTH 12.1 % (11.6-17.2); WHITE BLOOD COUNT 4.5 TH/MM3 (4.0-11.0)
[2017-03-15] MEDS: KETOROLAC TROMETHAMINE 30 MG/ML (IVP) VIAL IVP SCH ×2 (05:59→11:08)
[2017-03-15] MEDS ORDERED: LEVOTHYROXINE SODIUM 88 MCG TAB PO SCH (06:00)
[2017-03-15 06:03] LABS: BICARBONATE 28.2 MEQ/L (21.0-32.0); POTASSIUM 3.6 MEQ/L (3.5-5.1)
[2017-03-15] MEDS: oxyCODONE/ACETAMINOPHEN 5 MG/325 MG TAB PO PRN ×2 (06:12→11:08)
[2017-03-15] MEDS ORDERED: OXYC1TAB63 PO (06:50)
[2017-03-15 07:50] VITALS: BP 131/62; PULSE 86; RESP 20; TEMP 99; O2SAT 99
[2017-03-15] MEDS: SODIUM CHLORIDE 0.9% FLUSH 10 ML FLUSH IV FLUSH SCH (08:08)
[2017-03-15] MEDS: lamoTRIgine 100 MG TAB PO SCH (08:12)
[2017-03-15] MEDS ORDERED: PANTOPRAZOLE SOD 20 MG DELAYED RELEASE TAB PO SCH (09:00)
[2017-03-15] MEDS ORDERED: VENLAFAXINE 100 MG PO SCH (09:00)
[2017-03-15] MEDS: D5-1/2 NS + KCL 20 MEQ INJ 1,000 ML IV SCH (09:37)
[2017-03-15 11:30] VITALS: BP 135/61; PULSE 98; RESP 20; TEMP 99.8; O2SAT 97
--- NOTE | 2017-03-16 09:46 | MP ---
cc: LUIS ALBERTO ALMANZA MD DATE OF SURGERY 03/14/2017 PREOPERATIVE DIAGNOSIS Ovarian cancer status post neoadjuvant Taxol, carboplatin chemotherapy. POSTOPERATIVE DIAGNOSIS Ovarian cancer status post neoadjuvant Taxol, carboplatin chemotherapy, extensive intraperitoneal adhesions. PROCEDURE Robotic-assisted laparoscopic bilateral salpingo-oophorectomy, omentectomy, resection of intraperitoneal tumor, extensive lysis of adhesions. SURGEON Luis Alberto Almanza MD BUSINESS QUALITY ASSURANCE ANALYST [place] assistant director of admissions ANESTHESIA General endotracheal anesthesia ESTIMATED BLOOD LOSS 200 cc IV FLUIDS 2500 cc URINE OUTPUT 300 cc HISTORY This is a 66-year-old female who presented with intraperitoneal carcinomatosis, extensive ascites, markedly elevated CA-125 greater than 1300, biopsy proven papillary serous adenocarcinoma. She was counseled regarding options and initiated Taxol, carboplatin chemotherapy and has now completed neoadjuvant Taxol and carboplatin with the CA-125 declining extensively. The ascites essentially resolved. Physical exam showing improvement in the tumor burden and she is feeling better. She is counseled now about interval cytoreduction with the anticipation that we will still find active tumor and remove it surgically to the extent possible with the plan to follow with additional chemotherapy. She is seen now again in the preop holding area where these findings are again reviewed. Plan is discussed. Questions were answered. She expressed a good understanding and would like to move forward with surgery. FINDINGS Upon entry into the peritoneal cavity, the entire omentum is densely adherent to the anterior abdominal wall and continues down into the pelvis where it drapes over the pelvic structures overlying the colonic mesentery and obscuring the adnexa. The more distal end of the omentum inspected, the more dense the residual tumor was present. There were small miliary implants of tumor throughout the peritoneal cavity. There has clearly been a notable response to chemotherapy and the burden of tumor is in the omentum with a smaller burden of tumor in the adnexa bilaterally. The adnexa are both retroperitonealized and surrounded by dense adhesions. The uterus and cervix are surgically absent. The mesentery and the small and large bowel themselves appear essentially normal except for the small multifocal tumor implants, but no adhesions or evidence of obstruction or impending obstruction. At the conclusion of the case, the tumor had been reduced to where there were no detectable implants larger than approximately 4 or 5 mm and there were still numerous implants of the visceral and parietal surfaces not amenable to further surgical resection and not amenable to additional chemotherapy. STATEMENT OF COMPLEXITY The complexity of this case was significantly increased due to the extensive intraperitoneal and pelvic adhesions requiring a significant amount of additional time to gain safe access to the peritoneal cavity, accomplish surgical objectives and restore normal anatomy. A modifier should be applied accordingly. PROCEDURE The patient taken to the operating room, placed in the dorsal lithotomy position after general endotracheal anesthesia was administered. A time-out was undertaken. The patient was identified by sight recognition and hospital ID bracelet and the proposed procedure was reviewed and confirmed. She was carefully positioned in padded Dipak stirrups. Her arms were padded and secured to her sides. She was further secured to the operating table with egg crate padding tape in a cross chest over the shoulder fashion. All sites noted to be properly aligned with no malalignments or pressure points. She was prepped in a sterile fashion, draped below the waist. Umana catheter placed in the bladder. She was turned to low lithotomy position, a change of sterile gloves was undertaken. We completed draping in anticipation of laparoscopy, confirmed that an orogastric tube was in the stomach on suction. With manual elevation of the abdominal wall and direct laparoscopic visualization, entry into the left upper quadrant was made with a 5-mm cannula. Carbon dioxide gas was insufflated and an atraumatic entry was confirmed. The extensive adhesions and tumor extent was preliminarily assessed. Safe access in the left lateral quadrant was accomplished where an 8 mm cannula was introduced and some additional lysis of adhesions was undertaken until the central abdominal wall and right upper quadrant were clear such that a 12-mm cannula was placed in the midline above the umbilicus and an 8 mm cannula placed in the right upper quadrant. The original 5-mm cannula in the left upper quadrant exchanged for a 8-mm cannula. Surveying the anatomy, the transverse colon was elevated due to the omentum stuck to the anterior abdominal wall, but there was a relatively tumor free plane that followed along the transverse colon between the colon and the mesentery and so these adhesions were left in placed to help actually facilitate this dissection. The robotic system was brought into the operative field. She was placed in steep Trendelenburg position where three Ray-Yolanda sponges were placed in the peritoneal cavity. The robot was docked in the usual fashion. Monopolar scissors, fenestrated bipolar forceps and progressed manipulators placed in arms #1, 2 and 3 respectively and I took my place at the surgeon's console. Sharp dissection was used to separate the nonvascular attachments between the colon and the omentum. The vascular attachments were isolated and cauterized with bipolar cautery. Dissection was started at the midpoint and carried to the right laterally along the hepatic flexure in a stepwise fashion and then dissection was continued left bilaterally toward the splenic flexure where similarly the nonvascular attachments were taken down with sharp dissection. Vascular attachments were isolated, cauterized with bipolar cautery and transected until the infracolic omentum was detached from the transverse colon. The omentum and tumor were densely adherent to the abdominal wall. Sharp dissection and blunt dissection with focal cautery was used to start the dissection to resect the omentum and tumor from the anterior abdominal wall. This dissection was continued distally toward the pelvis. The lateral edges of the omentum were freed from the lateral attachments as well. In the distal pelvis, it was difficult to delineate omentum from tumor from the left adnexal structures and so dissection was discontinued at this point. Attention was redirected toward the right tube and ovary which were now visible, retroperitonealyzed, densely adherent to adjacent structures. The residual right round ligament was identified, isolated, cauterized and transected. The anterior and posterior leafs of the broad ligament were opened. Dissection was carried retroperitoneal to isolate the right infundibulopelvic ligament. The right ureter was identified. The intervening peritoneum was opened. The infundibulopelvic ligament was isolated and cauterized and transected. Sharp dissection was used to free the right tube and ovary from dense adhesions circumferentially and to sharply dissect the attached peritoneum such that the ureter could be dropped posterolaterally along its course in the pelvis and dissection was continued until the residual right utero-ovarian ligament was identified. The right utero-ovarian ligament was cauterized and transected thereby removing the right tube and ovary which was placed in the right pericolic gutter for later retrieval. Attention was now directed toward the left side. Retroperitoneal dissection was carried out to allow mobilization of the descending colon. Adhesions were taken down to separate the colon from its overlying attachments to the left pelvic sidewall structures. The left round ligament remnant was isolated, cauterized transected. The anterior and posterior leafs of the broad ligament were opened. The left ureter was identified. The left infundibulopelvic ligament was isolated. The intervening peritoneum was opened. The infundibulopelvic ligament was cauterized and transected. Sharp dissection was carried out to mobilize the adnexa from the left pelvic sidewall and sharp dissection was used to free the attachments to allow the ureter to drop posterior and lateral during dissection until the residual left utero-ovarian ligament was isolated. The utero-ovarian ligament was cauterized and transected. An additional dissection was carried out to free the omental tumor from its attachments to the mesentery of the colon and from overlying the bladder and vaginal apex and peritoneum. Dissection was continued until the entire omentum and tumor were free. The left tube and ovary were now dissected free from the tumor mass and omentum and the left tube and ovary were placed in the right pericolic gutter for later retrieval. Inspection confirmed that the bulk of the tumor had now been resected. Small volume multifocal implants remained as described above. It was felt that all reasonable surgical objectives had been completed. Accordingly, the robotic instruments were removed. The robotic system was disengaged from the operative field. I reentered the bedside under sterile condition. Each of the three Ray-Yolanda sponges were withdrawn through the 12-mm cannula. They were inspected and noted to be removed in their entirety. Next, the at 12 cm EndoCatch bag was used to capture the right and left tubes and ovaries and brought up through the abdominal wall and removed for permanent histopathologic analysis. Next, a 15-mm cannula was inserted. The fascial incision was extended sharply. The omentum and tumor were captured, brought to the abdominal wall and with countertraction using scissors, Denise clamps and ring forceps, the omentum and tumor were withdrawn in pieces reducing the size of the tumor until the remaining tumor could be delivered captured within the EndoCatch bag. The midline incision was closed with multiple interrupted 0 Vicryl sutures using a needle pass apparatus under direct laparoscopic visualization. They were tied securely which rendered the fascia completely airtight and hemostatic. Intraoperative inspection of the peritoneal cavity revealed adequate hemostasis. There were no remaining foreign objects in the peritoneal cavity. Successful cytoreduction of tumor. Preliminary counts were correct. Remaining cannulas were closed with 3-0 Vicryl suture, subcuticular, subcutaneous followed by Steri-Strips. Pelvic exam confirmed there were no remaining foreign objects in the vagina and final counts were correct. She was returned to dorsal supine position and was pending reversal of anesthesia when I left the operating room to precede her to the Post Anesthesia Care Unit. MD MARINO Garcia/CAT /8:15 AM /9:27 AM
== END 2017-03-15 12:23 | disposition home or self-care (01) | DRG 737 ==
LOC: HSDI 03-14 05:26 → EDSTATUS 03-14 07:30 → HOCB 03-14 14:25
PROVIDERS: ADMIT Obstetrics & Gynecology Gynecologic Oncology; ATTEND Obstetrics & Gynecology Gynecologic Oncology
PROC: 0UT24ZZ Resection of Bilateral Ovaries, Percutaneous Endoscopic Approach (ICD-10-PCS; 2017-03-14)
PROC: 0DBS4ZZ (ICD-10-PCS; 2017-03-14)
PROC: 0WJG0ZZ Inspection of Peritoneal Cavity, Open Approach (ICD-10-PCS; 2017-03-14)
PROC: 8E0W4CZ Robotic Assisted Procedure of Trunk Region, Percutaneous Endoscopic Approach (ICD-10-PCS; 2017-03-14)
PROC: 3E0T3CZ (ICD-10-PCS; 2017-03-14)
PROC: 3E0T3CZ (ICD-10-PCS; 2017-03-14)
PROC: 0UT74ZZ Resection of Bilateral Fallopian Tubes, Percutaneous Endoscopic Approach (ICD-10-PCS; principal; 2017-03-14 07:22)
DX: C56.9 Malignant neoplasm of unspecified ovary (principal); R18.8 Other ascites; C78.6 Secondary malignant neoplasm of retroperitoneum and peritoneum; K66.0 Peritoneal adhesions (postprocedural) (postinfection); Z92.21 Personal history of antineoplastic chemotherapy; N73.6 Female pelvic peritoneal adhesions (postinfective)
CPT/HCPCS: 80048; 85025; 85610; 86850; 86900; 86901; 88305; 88307; 94150; C9290; J0131; J0690; J1100; J1644; J1885; J2250; J2370; J2405; J3010; J3480; J7120; J8501

== ENCOUNTER 2018-01-12 05:12 | Observation (INO) | END 2018-01-13 14:54 | disposition home or self-care (01) | DX: C48.2 Malignant neoplasm of peritoneum, unspecified (principal); R18.8 Other ascites; K66.0 Peritoneal adhesions (postprocedural) (postinfection); Z92.3 Personal history of irradiation | CPT/HCPCS: 00840; 49321; 80048; 85025; 86850; 86900; 86901; 87493; 88112; 88305; 88331; 94150; 96361; 96374; 96376; G0378; J0131; J0330; J0690; J1100; J1644; J1885; J2250; J2405; J2550; J2710; J3010; J3480; J7120 ==

== ENCOUNTER 2018-02-19 19:40 | Inpatient (IN) ==
[2018-02-25] MEDS ORDERED: Aluminum/Magnesium/Simethacone Susp 30 ML UDC ONE (23:45)
[2018-02-26] MEDS ORDERED: Bisacodyl 10 MG Supp RECTAL PRN (00:01)
[2018-02-26] MEDS ORDERED: PILL SPLITTER OTHER PRN (00:13)
[2018-02-26] MEDS ORDERED: [UNRECOGNIZED DRUG - OTHER] IM PRN (00:22)
[2018-02-26] MEDS ORDERED: Heparin Central Flush 100 UNIT/ML 5 ML Vial IV.FLUSH PRN ×2 (02:45)
[2018-02-26] MEDS ORDERED: Aluminum/Magnesium/Simethacone Susp 30 ML UDC PO PRN (03:00)
[2018-02-26] MEDS: Levothyroxine 88 MCG Tablet PO SCH (05:58)
[2018-02-26 09:51] LABS: Baso % (Auto) 0.1 % (0.0-2.0); Eos # (Auto) 0.3 th/mm3 (0.0-0.4); Eos % (Auto) 5.5 % (0.0-4.0); Hematocrit 30.7 % (35.0-46.0); Hemoglobin 10.4 gm/dL (11.6-15.3); Lymph # (Auto) 1.1 th/mm3 (1.0-4.8); Lymph % (Auto) 22.1 % (9.0-44.0); Mean Corpuscular HGB Conc 33.8 % (32.0-36.0); Mean Corpuscular Hemoglobin 28.8 pg (27.0-34.0); Mean Corpuscular Volume 85.3 fL (80.0-100.0); Mean Platelet Volume 7.1 fL (7.0-11.0); Mono # (Auto) 0.6 th/mm3 (0.0-0.9); Mono % (Auto) 11.9 % (0.0-8.0); Neut % (Auto) 60.4 % (16.0-70.0); Platelet Count 365 th/mm3 (150-450); Red Blood Count 3.59 mil/mm3 (4.00-5.30); Red Cell Distribution Width 13.8 % (11.6-17.2)
--- NOTE | 2018-02-26 10:05 | P.PN ---
Subjective Interval history: Follow-up on patient with sigmoid volvulus. Patient seen and examined. Patient states she feels very well. She denies any acute medical complaints at this time. She denies any fever chills. She denies any chest pain or shortness of breath. She reports her postop pain is well controlled at this time. She reports good ostomy output. Physical Exam Vital signs: Vital Signs 02/26/18 02:03 02/26/18 08:00 Temperature 97.9 F 97.9 F Pulse Rate 82 Respiratory Rate 18 18 Blood Pressure 110/59 L 139/65 Pulse Oximetry 97 Intake & Output 02/25/18 02/26/18 02/26/18 18:59 06:59 18:59 Output Total 365 / 365 Balance -365 / -365 Weight 66 kg Output: Stool Amount (Stoma) 365 / 365 Right Lower Abdomen 365 / 365 Right Upper Abdomen 0 / 0 Other: # Voids 2 - Constitutional no acute distress, cooperative - Routine HEENT Exam Head: Present: normocephalic, atraumatic Eye: Present: EOMI, PERRL ENT: Present: mucous membranes moist, nares patent, external ear normal - Routine Neck Exam Present: supple, full ROM - Routine Respiratory Exam Present: CTA bilaterally - Routine Cardiovascular Exam Present: RRR, S1, S2 - Routine Abdominal Exam Present: soft, normoactive bowel sounds Comments: Soft, nontender to palpation, ileostomy in place with soft brown stool in bag. Abdominal incision appears to be healing well, manpreet in place. - Routine Extremities Exam Present: pulses intact Comments: Extremities without clubbing, cyanosis or edema - Routine Skin Exam Present: intact, dry - Routine Neurological Exam Present: alert, oriented X3, CN II-XII intact, moving all extremities - Routine Psychiatric Exam Present: normal affect, normal thought process, cooperative, good insight, good judgment Results - Labs CBC & Chem 7: 02/26/18 08:06 02/26/18 08:06 Labs: Laboratory Results - last 24 hr 02/22/18 02/22/18 02/23/18 16:10 16:10 03:30 WBC 5.1 RBC 3.52 L Hgb 10.2 L Hct 29.5 L MCV 83.7 MCH 29.0 MCHC 34.7 RDW 13.7 Plt Count 188 MPV 7.2 Neut % (Auto) Lymph % (Auto) [place] % (Auto) Eos % (Auto) Baso % (Auto) Neut # (Auto) Lymph # (Auto) [place] # (Auto) Eos # (Auto) Baso # (Auto) CBC Comment Sodium 140 142 Potassium 3.3 L 3.1 L Chloride 105 108 H Carbon Dioxide 23.2 19.2 L Anion Gap 12 15 BUN 21 H 19 H Creatinine 0.87 0.73 Estimated GFR 65 L 79 L Random Glucose 85 62 L Calcium 7.8 L D 7.7 L 02/23/18 02/24/18 03:30 06:23 WBC 6.2 RBC 3.22 L Hgb 9.4 L Hct 27.1 L MCV 84.2 MCH 29.2 MCHC 34.7 RDW 13.4 Plt Count 177 MPV 7.5 Neut % (Auto) 72.7 H Lymph % (Auto) 13.5 [place] % (Auto) 9.4 H Eos % (Auto) 4.0 Baso % (Auto) 0.4 Neut # (Auto) 4.5 Lymph # (Auto) 0.8 L [place] # (Auto) 0.6 Eos # (Auto) 0.2 Baso # (Auto) 0.0 CBC Comment DIFF FINAL Sodium 138 Potassium 3.2 L Chloride 106 Carbon Dioxide 22.5 Anion Gap 10 BUN 13 Creatinine 0.72 Estimated GFR 81 L Random Glucose 90 Calcium 7.9 L Assessment and Plan - Assessment (1) Sigmoid volvulus Code(s): K56.2 - Volvulus Status: Acute Plan: GI consulted- s/p colonoscopy. surgery consulted- s/p dx lap, open ex lap, partial colectomy , end ileostomy, mucus fistula, lysis of adhesions. cleared by surgery for discharge with outpatient follow-up. (2) Colitis Code(s): K52.9 - Noninfective gastroenteritis and colitis, unspecified Status : Acute Plan: CT w/ mural thickening of transverse and left colon consistent w/ mild colitis Patient is afebrile, no leukocytosis treated with IV Zosyn. (3) Stage IV carcinoma of ovary Code(s): C56.9 - Malignant neoplasm of unspecified ovary Status: Acute Plan: Previously following with Dr. Almanza -patient to follow-up with Dr. 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 Code Status: DNR Discussed Condition With: patient, nursing staff, Dr. Leon Discharge Planning: Patient previously on hospice but has decided to discontinue their service for now. Awaiting discharge to SNF, pending insurance authorization.
[2018-02-26] MEDS: lamoTRIgine 100 MG Tablet PO SCH ×2 (10:16→21:44)
[2018-02-26] MEDS: Venlafaxine XR 75 MG Capsule PO SCH (10:16)
[2018-02-26 10:17] LABS: Albumin 2.3 g/dL (3.4-5.0); Anion Gap 12 meq/L (5-15); Aspartate Aminotransferase 16 U/L (15-37); Blood Urea Nitrogen 5 mg/dL (7-18); Calcium 8.7 mg/dL (8.5-10.1); Carbon Dioxide 23.3 meq/L (21.0-32.0); Chloride 105 meq/L (98-107); Glomerular Filtration Rate 88 mL/min (>89); Glucose,Random 89 mg/dL (74-106); Potassium 3.6 meq/L (3.5-5.1); Sodium 140 meq/L (136-145)
[2018-02-26] MEDS: Senna/Docusate Sodium 8.6/50 MG Tablet PO SCH ×2 (10:17→21:43)
[2018-02-26 10:27] LABS: Alanine Aminotransferase 15 U/L (10-53); Alkaline Phosphatase 110 U/L (45-117); Total Protein 6.5 g/dL (6.4-8.2)
--- NOTE | 2018-02-26 13:04 | P.PNGS ---
Subjective Patient reports: no new complaints, pain is less Physical Exam Vital signs: Vital Signs 02/26/18 02:03 02/26/18 08:00 02/26/18 12:00 Temperature 97.9 F 97.9 F 98.5 F Pulse Rate 82 86 Respiratory Rate 18 18 18 Blood Pressure 110/59 L 139/65 130/63 Pulse Oximetry 97 97 Intake & Output 02/25/18 02/26/18 02/26/18 18:59 06:59 18:59 Output Total 365 / 365 Balance -365 / -365 Weight 66 kg Output: Stool Amount (Stoma) 365 / 365 Right Lower Abdomen 365 / 365 Right Upper Abdomen 0 / 0 Other: # Voids 2 - Constitutional no acute distress - Routine Abdominal Exam Present: soft, normoactive bowel sounds - Routine Psychiatric Exam Present: normal affect Assessment and Plan - Assessment (1) Stage IV carcinoma of ovary Code(s): C56.9 - Malignant neoplasm of unspecified ovary Status: Acute - Plan 67yo female s/p exlap end ileostomy for metastatic obstruction, stable. tolerating PO, pain ok, OOB. home soon.
[2018-02-26] MEDS ORDERED: traZODone 50 MG Tablet PO SCH (21:00)
[2018-02-26] MEDS: Aluminum/Magnesium/Simethacone Susp 30 ML UDC PO PRN (23:45)
[2018-02-27] MEDS: Levothyroxine 88 MCG Tablet PO SCH (05:28)
[2018-02-27] MEDS: Aluminum/Magnesium/Simethacone Susp 30 ML UDC PO PRN ×2 (05:36→13:08)
--- NOTE | 2018-02-27 08:45 | P.PN ---
Subjective Interval history: Follow-up on patient with sigmoid volvulus. Patient seen and examined. Patient states she feels good. She is now stating that she wants to be discharged to home and does not want to go to rehab facility. She reports that she feels very stable walking in the room and ambulating in the unit with a walker. She denies any fever chills. She denies any chest pain or shortness of breath. She denies any nausea, vomiting or abdominal pain. She reports good ostomy output. Physical Exam Vital signs: Vital Signs 02/26/18 12:00 02/26/18 16:00 02/26/18 19:14 Temperature 98.5 F 99.1 F Pulse Rate 86 90 Respiratory Rate 16 Blood Pressure 130/63 137/63 Pulse Oximetry 97 97 02/26/18 20:00 02/27/18 00:00 02/27/18 08:10 Temperature 98.6 F 98.4 F 98.1 F Pulse Rate 86 91 H 87 Respiratory Rate 18 Blood Pressure 135/60 138/63 120/56 L Pulse Oximetry 97 95 Intake & Output 02/26/18 02/27/18 02/27/18 18:59 06:59 18:59 Intake Total 1060 / 1060 300 / 300 Output Total 300 / 300 275 / 275 Balance 760 / 760 25 / 25 Intake: IV 100 / 100 300 / 300 Ofirmev Inj 1,000 mg In 100 ml 100 / 100 300 / 300 @ 400 mls/hr IV.SIG Q6H ELISABETH Rx# :[id number] Oral 960 / 960 Output: Urine 0 / 0 Stool Amount (Stoma) 300 / 300 275 / 275 Right Lower Abdomen 300 / 300 275 / 275 Other: # Voids 4 Narrative: GENERAL: This is a well-developed well-nourished female, in no acute distress. awake and alert. Ambulating in her room. SKIN: Warm and dry. HEAD: Atraumatic. Normocephalic. EYES: Pupils equal and round. No scleral icterus. No injection or drainage. ENT: No nasal bleeding or discharge. Mucous membranes pink and moist. NECK: Trachea midline. CARDIOVASCULAR: Regular rate and rhythm. RESPIRATORY: Nonlabored. Clear to auscultation. Breath sounds equal bilaterally. GASTROINTESTINAL: Abdomen soft, non-tender, ileostomy in place. Abdominal incision appears to be healing well, manpreet in place. MUSCULOSKELETAL: Extremities without clubbing, cyanosis, or edema. No obvious deformities. NEUROLOGICAL: Awake and alert. No obvious cranial nerve deficits. Motor grossly within normal limits. Able to move all extremities spontaneously. No focal neurologic finding. Normal speech. PSYCHIATRIC: Appropriate mood and affect; insight and judgment normal. Results - Labs CBC & Chem 7: 02/26/18 08:06 02/26/18 08:06 Laboratory Results - last 24 hr 02/26/18 02/26/18 08:06 08:06 WBC 5.0 RBC 3.59 L Hgb 10.4 L Hct 30.7 L MCV 85.3 MCH 28.8 MCHC 33.8 RDW 13.8 Plt Count 365 MPV 7.1 Neut % (Auto) 60.4 Lymph % (Auto) 22.1 [place] % (Auto) 11.9 H Eos % (Auto) 5.5 H Baso % (Auto) 0.1 Neut # (Auto) 3.0 Lymph # (Auto) 1.1 [place] # (Auto) 0.6 Eos # (Auto) 0.3 Baso # (Auto) 0.0 WBC Differential . Differential Comment Auto diff final Sodium 140 Potassium 3.6 Chloride 105 Carbon Dioxide 23.3 Anion Gap 12 BUN 5 L Creatinine 0.67 Estimated GFR 88 L Random Glucose 89 Calcium 8.7 Total Bilirubin 0.3 AST 16 ALT 15 Alkaline Phosphatase 110 Total Protein 6.5 Albumin 2.3 L - Procedures colonoscopy/ dx lap, open ex lap, partial colectomy , end ileostomy, mucus fistula, lysis of adhesions Assessment and Plan - Assessment (1) Sigmoid volvulus Code(s): K56.2 - Volvulus Status: Acute Plan: GI consulted- s/p colonoscopy. surgery consulted- s/p dx lap, open ex lap, partial colectomy , end ileostomy, mucus fistula, lysis of adhesions. cleared by surgery for discharge with outpatient follow-up. No heavy lifting x 4 weeks. No bathing. (2) Colitis Code(s): K52.9 - Noninfective gastroenteritis and colitis, unspecified Status : Acute Plan: CT w/ mural thickening of transverse and left colon consistent w/ mild colitis Patient is afebrile, no leukocytosis treated with IV Zosyn. (3) Stage IV carcinoma of ovary Code(s): C56.9 - Malignant neoplasm of unspecified ovary Status: Acute Plan: Previously following with Dr. Almanza -patient to follow-up with Dr. 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 Discharge Planning: Patient previously on hospice but has decided to discontinue their service for now. Awaiting discharge to SNF, pending insurance authorization. 02/27 patient is now declining SNF. States that she wants to be discharged home. We will have PT reevaluate patient for possible home health care PT. Discussed with case management.
[2018-02-27] MEDS: Senna/Docusate Sodium 8.6/50 MG Tablet PO SCH (08:52)
[2018-02-27] MEDS: lamoTRIgine 100 MG Tablet PO SCH (08:53)
[2018-02-27] MEDS: Venlafaxine XR 75 MG Capsule PO SCH (08:54)
--- NOTE | 2018-02-27 11:52 | P.PNGS ---
Subjective Patient reports: no new complaints (+ileostomy output, doing well, tolerating diet) Physical Exam Vital signs: Vital Signs 02/26/18 12:00 02/26/18 16:00 02/26/18 19:14 Temperature 98.5 F 99.1 F Pulse Rate 86 90 Respiratory Rate 18 18 16 Blood Pressure 130/63 137/63 Pulse Oximetry 97 97 02/26/18 20:00 02/27/18 00:00 02/27/18 08:10 Temperature 98.6 F 98.4 F 98.1 F Pulse Rate 86 91 H 87 Respiratory Rate 18 18 Blood Pressure 135/60 138/63 120/56 L Pulse Oximetry 97 95 Intake & Output 02/26/18 02/27/18 02/27/18 18:59 06:59 18:59 Intake Total 1060 / 1060 300 / 300 Output Total 300 / 300 275 / 275 Balance 760 / 760 25 / 25 Intake: IV 100 / 100 300 / 300 Ofirmev Inj 1,000 mg In 100 ml 100 / 100 300 / 300 @ 400 mls/hr IV.SIG Q6H ELISABETH Rx# :[id number] Oral 960 / 960 Output: Urine 0 / 0 Stool Amount (Stoma) 300 / 300 275 / 275 Right Lower Abdomen 300 / 300 275 / 275 Other: # Voids 4 - Routine Abdominal Exam Present: soft (mucus fistula pink viable, ileostomy with stool, well healing, incision c/d/i) Assessment and Plan - Assessment (1) Stage IV carcinoma of ovary Code(s): C56.9 - Malignant neoplasm of unspecified ovary Status: Acute - Plan s/p ex lap partial colectomy mucus fistula, ileostomy PLAN reg diet oob pain control d/c planning likely home with c, pt to eval by PT ok for d/c from surgery stand point f/u [address] Craig
--- NOTE | 2018-02-27 14:42 | P.DCO ---
- Physical Therapy Order: Evaluate and treat, Improve ambulation, Strength and gait training - Home Health Nursing Order: Medical education, Signs/symptoms of disease process, Medication education-adverse effect, Wound care and dressing changes (ileostomy management) , Nursing assessment with vital signs - Certification I have seen patient Laxmi Avitia on 02/27/18. My clinical findings support the need for the requested home health care services because: Limited mobility due to disease progression, Deconditioned with increased weakness, Limited ability to care for self, High risk of falls I certify that my clinical findings support that this patient is homebound because: Post-op weakness, Unsteady gait/balance, Unsafe to leave home unassisted, Unable to use public transportation
--- NOTE | 2018-02-27 16:45 | P.DS ---
Date of admission: 02/19/18 23:08 Primary care physician: Ivet Jerez MD Attending physician on discharge: Noé Leon Anticipated date of discharge: 02/27/18 Brief History from admission: This is a 67-year-old DNR female with PMH of Metastatic Ovarian CA, Anxiety, Depression and GERD who presented to ER with complaints of abdominal pain x1 day. Notes pain is epigastric, burning, constant, severe, 10/10, non- radiating. Reports h/o chronic abdominal pain from Ovarian CA, however this is worse than usual. Previously following w/ Dr. Almanza, however currently on Hospice Care w/ [facility]. Reports associated nausea and vomiting. No diarrhea, fever or chills. On arrival, BP 143/70, HR 88, O2 sat 98% on RA, Afebrile. CBC unremarkable. Chemistry essentially unremarkable. UA negative for UTI. CT Abdomen/Pelvis dilated loop of bowel in the central abdomen, proximal transverse colon likely volvulus, mural thickening of transverse and left colon characteristic of mild colitis. Surgical intervention was discussed w/ patient at length, however she does not want to pursue surgery at this time. Dr. Collazo consulted, recommended NGT, Rectal Tube and Gastrografin, if unsuccessful then would plan for Colonoscopy. Pt agreeable to this. line appliance assembler at bedside. DS: Diagnosis - Discharge Diagnosis (1) Gait instability Status: Acute (2) Weakness Status: Acute (3) Sigmoid volvulus Status: Acute (4) Colitis Status: Acute (5) Stage IV carcinoma of ovary Status: Acute (6) Metastatic malignant neoplasm to ovary Status: Acute (7) Hypokalemia Status: Resolved DS: Summary Hospital Course: Patient was admitted with sigmoid volvulus. She was seen in consultation by GI and general surgery and underwent a colonoscopy/ dx lap, open ex lap, partial colectomy , end ileostomy, mucus fistula, lysis of adhesions. Her postoperative course was uneventful. Patient was cleared by surgery for discharge. Initially patient was good to be discharged to rehab but while awaiting insurance authorization patient improved and was reevaluated by physical therapy who recommended home health PT. Patient wished to forego SNF placement and requested to be discharged to home. Of note, patient had been under the care of hospice service prior to admission but had elected not to go back to hospice. Patient underwent ostomy education prior to discharge. - Time Spent with Patient Total time spent providing and/or coordinating discharge services: Greater than 30 minutes Exam Vital signs: Vital Signs 02/26/18 19:14 02/26/18 20:00 02/27/18 00:00 Temperature 98.6 F 98.4 F Pulse Rate 86 91 H Respiratory Rate 16 18 18 Blood Pressure 135/60 138/63 Pulse Oximetry 97 95 02/27/18 08:10 Temperature 98.1 F Pulse Rate 87 Respiratory Rate 18 Blood Pressure 120/56 L Pulse Oximetry Intake & Output 02/26/18 02/27/18 02/27/18 18:59 06:59 18:59 Intake Total 1060 / 1060 300 / 300 Output Total 300 / 300 275 / 275 Balance 760 / 760 25 / 25 Intake: IV 100 / 100 300 / 300 Ofirmev Inj 1,000 mg In 100 ml 100 / 100 300 / 300 @ 400 mls/hr IV.SIG Q6H ELISABETH Rx# :[id number] Oral 960 / 960 Output: Urine 0 / 0 Stool Amount (Stoma) 300 / 300 275 / 275 Right Lower Abdomen 300 / 300 275 / 275 Other: # Voids 4 Narrative: GENERAL: This is a well-developed well-nourished female, in no acute distress. awake and alert. Ambulating in her room. SKIN: Warm and dry. HEAD: Atraumatic. Normocephalic. EYES: Pupils equal and round. No scleral icterus. No injection or drainage. ENT: No nasal bleeding or discharge. Mucous membranes pink and moist. NECK: Trachea midline. CARDIOVASCULAR: Regular rate and rhythm. RESPIRATORY: Nonlabored. Clear to auscultation. Breath sounds equal bilaterally. GASTROINTESTINAL: Abdomen soft, non-tender, ileostomy in place. Abdominal incision appears to be healing well, manpreet in place. MUSCULOSKELETAL: Extremities without clubbing, cyanosis, or edema. No obvious deformities. NEUROLOGICAL: Awake and alert. No obvious cranial nerve deficits. Motor grossly within normal limits. Able to move all extremities spontaneously. No focal neurologic finding. Normal speech. PSYCHIATRIC: Appropriate mood and affect; insight and judgment normal. Results Procedures completed during hospitalization: colonoscopy/ dx lap, open ex lap, partial colectomy , end ileostomy, mucus fistula, lysis of adhesions Discharge Plan - Discharge Disposition Patient Disposition: W/Home Health Service - Discharge Condition Condition: Stable - Discharge Order Discharge Orders: Discharge Order (Routine); Ordered 02/27/18 Ordered By: Melinda Baigolm - Discharge Details Anticipated Discharge Date: 02/27/18 - Physicians Team Primary Care Provider: Ivet Jerez Attending Provider: Noé Leon Other Providers: Odalys Collazo MD ; Pravin Craig MD - Rxs /Orders / Referrals /Forms Prescriptions: Continue donepezil [Aricept] 5 mg Tablet 5 mg PO ONCE Lactobacillus acidophilus Capsule 1 cap PO DAILY lamotrigine [Lamictal] 150 mg Tablet 150 mg PO BID levothyroxine 88 mcg Tablet 88 mcg PO ONCE lorazepam 0.5 mg Tablet 0.5 mg PO DAILY PRN (Reason: anxiety) multivitamin [Multiple Vitamins] Tablet 1 tab PO DAILY pantoprazole [Protonix] 40 mg Tablet,Delayed Release (Dr/Ec) 40 mg PO DAILY tramadol [Ultram] 50 mg Tablet 50 mg PO Q4-6H PRN (Reason: Pain) trazodone 50 mg Tablet 50 mg PO ONCE venlafaxine 150 mg Tablet Extended Release 24hr 150 mg PO ONCE Referrals: Sharmin Almanza MD [Physician] - See Instructions ( Please call the physician' s office to book the appointment to be seen within [one week].) Pravin Craig MD [Physician] - See Instructions ( Please call the physician' s office to book the appointment to be seen within [one week].) Ivet Jerez MD [Primary Care Provider] - See Instructions ( Please call the physician's office to book the appointment to be seen within [3 days].) - Discharge Instructions Print Language: Salvadorean - Discharge Interventions Interventions: Discharge Planning Last Done: 02/27/18 16:36
--- NOTE | 2018-02-27 19:13 | P.PNWCN ---
Wound Care Nurse Consult Description: Patient seen today for follow up of Ileostomy and mucus fistula teaching and care. Communicated with: RN Johana sullivan and patient Incision - Incision Anterior Abdomen Incision Assessment: Ongoing Incision Type: Incision Incision Description: Approximated, [place] Incision Bed Appearance: [place] Surrounding Tissue Appearance: [place] Surrounding Tissue Temperature: Cool Drainage Amount: None Drainage Odor: No Odor Incision Dressing Status: Open to Air Bowel Diversion Stoma - Bowel Stoma Right Upper Abdomen Stoma Edema: No Stoma Diameter: 45 (mm) Stoma Appearance: Brick Red, Protruding, Round Loop Supporting Bro: No Collection Device: Two-piece, Moldable Wafer Drainage Description: Mucoid, Blood-Tinged Wafer Size: 2 1/4 Moldable Stoma Care: Pouch and Wafer Changed, Skin Care Eli-Stomal Skin Appearance: Intact Eli-Stomal Surrounding Tissue Sensation Description: No Symptoms Right Lower Abdomen Stoma Edema: No Stoma Diameter: 38 (mm) Stoma Appearance: Protruding, Round Loop Supporting Bro: No Collection Device: One-piece Drainage Description: Liquid, Brown Wafer Size: 2 1/4 Moldable Stoma Care: Pouch and Wafer Changed, Skin Care Eli-Stomal Skin Appearance: Intact, Irritated and Inflammed Eli-Stomal Surrounding Tissue Sensation Description: Burning - Additional Information Additional Information: Patient seen earlier on for follow up Ileostomy teaching, and mucus fistula teaching and care. Ileostomy 2 piece appliance was changed first. Patient assisted and and talked patient through change. Ileostomy stoma presents pink, round and moderately protruding.Stoma is located on RLQ. Peristomal skin was cleansed with water and soft cloths. Peristomal skin presents with some irritation from 5 to 7 o'clock. Peristomal skin was encrusted with stoma powder and skin barrier film. Process was repeated one time. Yesika seal was then applied from 3 to 9 o'clock to seal skin barrier. 2 1/ 4 moldable two piece skin barrier was then applied and transparent pouch was attached. Mucus fistula 2 piece appliance was then changed.Stoma presents with dark red color and protruding.stoma is located on RUQ. Peristomal skin was cleansed with water and soft cloth and patted dry. Skin barrier film was applied before applying 2 1/4 moldable, two piece skin barrier and attached pouch. Patient instructed on diet, peristomal skin care, when to change illeostomy appliance and mucus fistular appliance. Patient is learning, but is need of further teaching.
--- NOTE | 2018-03-02 07:36 | MP ---
cc: Pravin Craig MD DATE OF OPERATION: 02/21/2018 Corrected Copy: 03/02/18 PREOPERATIVE DIAGNOSIS: Colonic volvulus. POSTOPERATIVE DIAGNOSIS: Colonic volvulus, a cecal volvulus with adhesions due to metastatic disease. PROCEDURES PERFORMED: 1. Diagnostic laparoscopy. 2. Exploratory laparotomy. 3. Partial ascending colectomy. 4. End ileostomy. 5. Mucous fistula. 6. Lysis of adhesions. SURGEON: Pravin Craig MD TOBACCO GRADER: Dr. Rafa Osborne who was necessary due to the complexity of the case. Dr. Osborne helped in assisting in retraction and facilitating the case. SPECIMENS: Right ascending colon. FINDINGS: Cecal volvulus with ischemic colon, metastatic disease, adhesion band, indurated small bowel but pink and viable BLOOD LOSS: 30 mL IV FLUIDS: See anesthesia sheet. DRAINS: 10-Sudanese DEMIAN drain placed. INDICATIONS: The patient is a 67-year-old female who presented with acute onset of abdominal pain. The patient noted to complain of severe abdominal pain, history of metastatic ovarian cancer, history of chemotherapy treatment. The patient is currently on hospice and underwent colonoscopy with attempt for detorsion also very minimum for attempt at detorsion. These were both unsuccessful. Therefore, decision was made for operative intervention including diagnostic laparoscopy, possible exploratory laparotomy. DETAILS OF PROCEDURE: The patient was taken to the operating suite, placed in supine position. He was prepped and draped in the usual sterile fashion after induction of general endotracheal anesthesia. Brief timeout done stating correct patient, procedure, and surgical site. We were all in agreement with this. Attention was first turned to the umbilicus where a small stab ashanti incision was made with an 11 blade after injection of local anesthetic. A Visiport 5 mm Optiview was used to enter the abdomen safely, abdomen insufflated to 15 mm pneumoperitoneum. There was noted to be a couple of abdominal adhesions. There was also noted to be some dilated ischemic colon with twisting, very concerned. At this point, the surgery was best facilitated in an open fashion to remove the ischemic colon and further explore the abdomen. A midline incision was done with a 15 blade. Further dissection with electro Bovie cautery. Bookwalter placed for retraction. A wound protector was placed as well. On exploration, there was noted to be some serosanguineous fluid present in the abdomen and it was suctioned and irrigated. The right ascending colon was noted to be twisted with ischemia. There was an adhesive band going across the transverse colon that was evident of a metastatic disease of ovarian cancer. This was lysed and the colon was mobilized. A GI stapler was used to transect the proximal transverse colon to healthy viable bowel. This was done with a blue load 75. Further, the distal ileum was also transected at the viable part of the bowel with a ABDOUL blue load stapler. The colon was removed to the mesentery using Harmonic scalpel. The specimen was placed to pathology. Hemostasis was obtained. Multiple adhesions were taken down again to facilitate continuing with the case. Next, after the small bowel was run and the colon was fully examined, there was noted to be palpable ovarian metastatic disease within the abdomen. Again, this was irrigated and washed out. An end ileostomy was facilitated in the right lower quadrant. A Denise was used. A small circular ring of skin was removed. Further dissection with electro Bovie cautery. A cruciate incision was made in the fascia and Maira used to grasp the end of the ileum. Likewise, the proximal transverse colon, similar mucous fistula was facilitated using again Denise to remove circular tissue with a knife, followed by electro Bovie cautery. This was done in the right upper quadrant. A cruciate incision was made to the fascia and the proximal and transverse was grasped and brought through the wound. The left lower quadrant stab incision was made to facilitate a 10 flat DEMIAN drain, placed in the pelvis. This was secured with 2-0 nylon. The incision was closed with O looped PDS x2 in a running fashion followed by manpreet and a bryant dressing. Both ostomies were rosebudded. The manpreet were removed. Gloves were changed and 3-0 Vicryl was used in a radial position in order to [place] and Leah an ileostomy and a colostomy. Bag was placed. Hemostasis was noted and a sterile dressing was placed. The patient tolerated the procedure well with no intraoperative complications. All lap and instrument counts were correct at the end of the procedure. The patient was extubated and taken stable to PACU. MD DENA Lux/ , 05:30 PM , 05:57 PM
== END 2018-02-27 18:55 | disposition home health service (06) ==
LOC: N07 23:08
PROVIDERS: ADMIT Hospitalist; ATTEND Hospitalist